=== PATIENT | female | born 1945 | race Caucasian/White ===

== ENCOUNTER 2021-09-05 12:19 | Emergency (ER) | payer MEDICARE ==
[~2021-09-05] VITALS: Ht 157.5 cm; Wt 77.1 kg
== END 2021-09-05 15:30 | disposition home or self-care (01) ==
LOC: ER1 12:19
DX: U07.1 COVID-19 (principal); Z23 Encounter for immunization; E78.5 Hyperlipidemia, unspecified; I10 Essential (primary) hypertension
CPT/HCPCS: 99283; M0243

== ENCOUNTER 2022-06-20 08:42 | Emergency (ER) | payer MEDICARE, OTHER | END 2022-06-20 09:58 | disposition E | LOC: ER1 08:42 | DX: I46.9 Cardiac arrest, cause unspecified (principal); R10.9 Unspecified abdominal pain; F17.200 Nicotine dependence, unspecified, uncomplicated | CPT/HCPCS: 92950; 99285; J0171 ==